=== PATIENT | male | born 1975 | race Caucasian/White ===

== ENCOUNTER → 2020-10-29 | Outpatient (CLI) | payer BC ==
[2020-10-29 16:30] LABS: Basophils # (A) 0.1 k/uL (0-0.2); Basophils % (A) 1 %; Eosinophils # (A) 0.1 k/uL (0-0.7); Eosinophils % (A) 1 %; HCT 44.6 % (39.0-53.0); HGB 15.1 gm/dL (13.0-17.5); Lymphocytes # (A) 2.9 k/uL (1.0-4.8); Lymphocytes % (A) 36 %; MCH 30.1 pg (25.0-35.0); MCV 88.5 fL (80.0-100.0); Mean Platelet Volume 7.7; Monocytes # (A) 0.4 k/uL (0-1.0); Monocytes % (A) 5 %; Neutrophils # (A) 4.5 k/uL (1.3-7.7); Neutrophils % (A) 56 %; Platelet Count 228 k/uL (150-450); RBC 5.04 m/uL (4.30-5.90); RDW 12.4 % (11.5-15.5); WBC 8.1 k/uL (3.8-10.6)
[2020-10-29 16:36] LABS: Potassium 4.1 mmol/L (3.5-5.1)
== END | disposition home or self-care (01) ==
LOC: LABPAT 15:10
PROVIDERS: ATTEND Orthopaedic Surgery
DX: Z01.818 Encounter for other preprocedural examination (principal); M75.42 Impingement syndrome of left shoulder
CPT/HCPCS: 80051; 85025

== ENCOUNTER 2020-11-14 06:10 | Day surgery (SDC) | payer BC ==
[2020-11-07 11:23] VITALS: BMI 23.0
--- NOTE | 2020-11-13 13:33 | HP ---
HISTORY AND PHYSICAL Surgery is 11/14/2020. Aroldo Strauss is a 45-year-old gentleman seen with progressive left shoulder pain. We discussed options for treatment. He elected to proceed with arthroscopy. Consent regarding the procedure was obtained. PAST MEDICAL HISTORY: Hypertension. PAST SURGICAL HISTORY: Right hand surgery. DAILY MEDICATIONS: Losartan. ALLERGIES: None. SOCIAL HISTORY: Denies current tobacco use. PHYSICAL EXAMINATION: Physical evaluation of the left shoulder: Flexion 150 degrees, abduction is 90 degrees. External rotation is 40 degrees with pain and weakness. Tenderness along the anterolateral acromion and rotator cuff insertion site. Impingement sign is positive at 90 degrees. His distal neurovascular exam is intact. Radiographs of the left shoulder revealed a type 2 acromion, acromioclavicular joint osteoarthritis and cystic changes of the tuberosity. The left shoulder MRI revealed a partial rotator cuff tear as well as osteoarthritic changes. IMPRESSION: 1. Left shoulder impingement with rotator cuff tear. 2. Left shoulder acromioclavicular joint osteoarthritis. 3. Hypertension. PLAN: Left shoulder arthroscopy with subacromial decompression, arthroscopic rotator cuff repair, Ofelia procedure and debridement. MMODL / IJN: [id number] /
--- NOTE | 2020-11-13 13:33 | HP ---
HISTORY AND PHYSICAL Surgery is 11/14/2020. Aroldo Strauss is a 45-year-old gentleman seen with progressive left shoulder pain. We discussed options for treatment. He elects to proceed with arthroscopy. Consent was obtained. PAST MEDICAL HISTORY: Hypertension. PAST SURGICAL HISTORY: Right hand surgery. DAILY MEDICATIONS: Losartan. ALLERGIES: None. SOCIAL HISTORY: He denies current tobacco use. PHYSICAL EXAMINATION: Physical evaluation of the left shoulder: Flexion 150 degrees, abduction is 90 degrees. External rotation is 40 degrees with pain, weakness, tenderness along the anterior lateral acromion and rotator cuff insertion site. Impingement is positive at 90. Distal neurovascular exam intact. Radiographs left shoulder: Type 2 acromion, acromioclavicular joint osteoarthritis, cystic change of the tuberosity. MRI left shoulder partial rotator cuff tendon tear, osteoarthritic changes. IMPRESSION: 1. Left shoulder impingement with rotator cuff tear. 2. Left shoulder acromioclavicular joint osteoarthritis. 3. Hypertension. MMODL / IJN: [id number] /
[~2020-11-14 06:10] MED LIST: DEXAMETHASONE SOD PHOSPHATE 4 MG/ML 1 ML VIAL IV ONE; LACTATED RINGERS 1,000 ML IV SCH; LIDOCAINE 1% (10MG/ML) FOR IV START INTRADERMA PRN; MIDAZOLAM 2 MG/2 ML VIAL IV PRN; ONDANSETRON 4 MG/2 ML VIAL IVP ONE
[2020-11-14] MEDS ORDERED: HYDROmorphone 0.5 MG/0.5 ML SYRINGE IVP PRN (07:00)
[2020-11-14] MEDS ORDERED: fentaNYL (PF) 50 MCG/ML 2 ML AMP IVP PRN (07:00)
[2020-11-14] MEDS ORDERED: MIDAZOLAM 2 MG/2 ML VIAL IVP ONE (07:17)
[2020-11-14] MEDS ORDERED: SUCCINYLCHOLINE CHLORIDE 100 MG/5 ML SYR IV ONE (07:51)
[2020-11-14] MEDS ORDERED: MIDAZOLAM 2 MG/2 ML VIAL ONE (07:51)
[2020-11-14] MEDS ORDERED: PHENYLEPHRINE 10 MG/ML VIAL ONE (07:51)
[2020-11-14] MEDS ORDERED: PROPOFOL 10 MG/ML 20 ML VIAL IV ONE (07:51)
[2020-11-14] MEDS ORDERED: fentaNYL (PF) 50 MCG/ML 2 ML AMP ONE (07:51)
[2020-11-14] MEDS ORDERED: DEXAMETHASONE SOD PHOSPHATE 10 MG/ML 1 ML VIAL ONE (07:51)
[2020-11-14] MEDS ORDERED: ROPIVACAINE 5 MG/ML 30 ML VIAL ONE (07:51)
[2020-11-14 09:28] VITALS: RESP 16; TEMP 97.5
--- NOTE | 2020-11-14 09:31 | P.OP ---
Date of Procedure: 11/14/20 Preoperative Diagnosis: Left shoulder impingement Postoperative Diagnosis: 1. Left shoulder rotator cuff tear 2. Left shoulder impingement 3. Left shoulder partial long head biceps tendon tear 4. Left shoulder superficial labral tear Procedure(s) Performed: 1. Left shoulder arthroscopic rotator cuff repair 2. Left shoulder arthroscopic subacromial decompression 3. Left shoulder arthroscopic biceps tenotomy 4. Left shoulder arthroscopic debridement superficial labral tear Implants: 14.75 Arthrex swivel lock anchor Anesthesia: GETA, regional (Interscalene block) Surgeon: Pierre Murphy [facility] Program Manager #1: Osmel Balderas Estimated Blood Loss (ml): 10 Pathology: none sent Condition: stable Disposition: PACU Indications for Procedure: 45-year-old gentleman seen with progressive left shoulder pain. After treatment options were discussed with him, he elected to proceed with arthroscopy. Operative Findings: See description of procedure Description of Procedure: Patient underwent an interscalene block by department of anesthesia. The patient was then taken to the operative suite. The patient underwent a general anesthetic by the department of anesthesia. The patient was placed into a lateral position and secured. There was appropriate padding of the bony prominence. Left shoulder was then prepped and draped in normal sterile orthopedic fashion. We placed the extremity in 10 pounds of longitudinal traction. A posterior incision was now made for a posterior working portal site. The trocar and cannula were inserted into the glenohumeral joint. Arthroscopy was initiated. Spinal needle was now inserted anteriorly, to ascertain the anterior working portal site. An incision was now made in that area, a trocar was inserted followed by a probe. There was superficial tearing of the superior labrum. There were grade 1 chondromalacia changes of the humeral head. There was partial tearing and hyperemia long head biceps tendon. I performed an arthroscopic biceps tenotomy. I debrided that superficial labral tear. The remaining labrum was probed and found to be stable. Instruments removed from glenohumeral joint. Utilizing the posterior working portal site, the trocar and cannula were inserted into the subacromial space. Arthroscopy initiated. I made an incision 2 fingerbreadths lateral to the acromion. I introduced my trocar followed by my ArthroCare ablator. I now began ablating thick subacromial bursal tissue, which exposed the undersurface of the anterior acromion. There was diminished subacromial space. There was a very prominent anterior acromion. A motorized bur was introduced and a subacromial decompression was performed. I also excised some osteophytes off the inferior aspect of the distal clavicle. The AC joint wa s visualized and noted to mildly arthritic. I turned my attention to the rotator cuff. Was some superficial tearing of the anterior aspect of the distal supraspinatus. Upon probing the area I noted a full-thickness perforation/tear. I debrided the margins getting down to stable tendon tissue. The defect measured 11.5 cm and was freely mobile over the footprint. I introduced my motorized bur and abraded the footprint area, getting some petechial bleeding. I passed 2 everted mattress sutures through good bites of rotator cuff tendon with the assistance of Sarmad ROSARIO. I now punched a hole in the footprint area for insertion of an anchor. The suture limbs were passed through the eyelet of a 4.75 Arthrex swivel lock anchor. I placed the eyelet of the pre- punch hole. Sarmad ROSARIO tensioned all 4 suture limbs and deployed anchor with good fixation noted. We had good compression of the tendon along the entire footprint. I injected 1 mL Renyte intra-articular. Instruments now removed from the portal sites. All portal sites were approximated with nylon suture. Sterile dressings were applied followed by a shoulder immobilizer. Osmel ROSARIO assisted in this case. The patient was awakened, transferred to a bed, and taken to recovery in stable condition.
[2020-11-14] MEDS ORDERED: LACTATED RINGERS 1,000 ML IV ONE (09:48)
[2020-11-14 10:13] VITALS: BP 132/87; PULSE 92
--- NOTE | 2020-11-14 10:45 | P.ANPRN ---
Procedure Note - Anesthesia - Nerve Block Performed Left Interscalene Single Time Out Performed: Yes Date of Procedure: 11/14/20 Procedure Start Time: :16 Procedure Stop Time: : Location of Patient: PreOp Indication: Acute Post-Operative Pain, Requested by Surgeon Sedation Type: Sedate with meaningful contact maintained Preparation: Sterile Prep Position: Supine Needle Types: Pajunk Needle Gauge: 21 Ultrasound used to visualize needle placement: Yes Ultrasound used to observe medication spread: Yes Blood Aspirated: No Pain Paresthesia on Injection Noted: No Resistance on Injection: Normal Image Stored and Saved: Yes Events: Uneventful and Well Tolerated (ropi .5% 20cc plus dexamethasone 4mg)
== END 2020-11-14 10:44 | disposition home or self-care (01) ==
LOC: OR 06:10
PROVIDERS: ATTEND Orthopaedic Surgery
DX: M75.122 Complete rotator cuff tear or rupture of left shoulder, not specified as traumatic (principal); M19.012 Primary osteoarthritis, left shoulder; M25.712 Osteophyte, left shoulder; S43.432A Superior glenoid labrum lesion of left shoulder, initial encounter; S46.112A Strain of muscle, fascia and tendon of long head of biceps, left arm, initial encounter; M94.212 Chondromalacia, left shoulder; M75.42 Impingement syndrome of left shoulder; I10 Essential (primary) hypertension; F17.210 Nicotine dependence, cigarettes, uncomplicated; Z79.82 Long term (current) use of aspirin; Z79.899 Other long term (current) drug therapy
CPT/HCPCS: 64415; 76942; 29827; 29826; C1713; Q4212; J2250; J1100 ×2; J2370; J2405; J0690; J3010; J2795; J0330; J2704

== ENCOUNTER 2021-12-18 11:26 | Emergency (ER) | payer BC ==
[2021-12-18 11:43] VITALS: RESP 18; TEMP 98
--- NOTE | 2021-12-18 12:46 | XR ---
EXAMINATION TYPE: XR lumbosacral spine min 4V DATE OF EXAM: 12/18/2021 CLINICAL HISTORY: pain COMPARISON: NONE TECHNIQUE: Frontal, lateral, and oblique images of the lumbar spine are obtained. FINDINGS: There is a 5.5 mm retrolisthesis of L4 on L5 as well as grade 2 anterolisthesis of L5 on S1 measuring 1.2 cm. There appears to be bilateral spondylolysis. Vertebral bodies appear to be intact. Advanced degenerative changes L5-S1. IMPRESSION: Spondylolisthesis at L4-5 and L5-S1.
[2021-12-18] MEDS ORDERED: ACET/COD 300 MG/30 MG STARTER PACK 6 TAB BTL PO STA (13:34)
--- NOTE | 2021-12-18 13:35 | ED ---
Back Pain HPI - General Chief Complaint: Back Pain/Injury Stated Complaint: Rt hip pain Time Seen by Provider: 12/18/21 11:49 Source: patient, RN notes reviewed Limitations: no limitations - History of Present Illness Initial Comments: 46-year-old male presents emergency Department chief complaint low back pain. Patient states he was bowling states his first throat he felt discomfort in his low back and right side. He's had on-and-off issues. He denies any bowel, bladder incontinence or retention or saddle anesthesias. Patient denies any lower extremity weakness. Patient states that is better rest worse with movement. Patient's ever been evaluated for this. - Related Data Home Medications Medication Instructions Recorded Confirmed Losartan Potassium 100 mg PO QAM 10/06/16 11/07/20 Aspirin [Adult Low Dose Aspirin EC] 81 mg PO DAILY 11/07/20 11/07/20 Previous Rx's Medication Instructions Recorded HYDROcodone/APAP 7.5-325MG [[place] 1 each PO Q6HR PRN #28 tab 11/14/20 7.5] Cyclobenzaprine [Flexeril] 10 mg PO TID PRN #15 tab 12/18/21 Ibuprofen [Motrin] 600 mg PO Q8HR PRN #20 tab 12/18/21 predniSONE 50 mg PO DAILY #5 tab 12/18/21 Allergies Allergy/AdvReac Type Severity Reaction Status Date / Time No Known Allergies Allergy Verified 12/18/21 11:42 Review of Systems ROS Statement: Those systems with pertinent positive or pertinent negative responses have been documented in the HPI. ROS Other: All systems not noted in ROS Statement are negative. Past Medical History Past Medical History: Hypertension History of Any Multi-Drug Resistant Organisms: None Reported Past Surgical History: Orthopedic Surgery Past Psychological History: No Psychological Hx Reported Smoking Status: Current every day smoker Past Alcohol Use History: Occasional Past Drug Use History: None Reported General Exam Limitations: no limitations General appearance: alert, in no apparent distress Head exam: Present: atraumatic, normocephalic, normal inspection Respiratory exam: Present: normal lung sounds bilaterally. Absent: respiratory distress, wheezes, rales, rhonchi, stridor Cardiovascular Exam: Present: regular rate, normal rhythm, normal heart sounds. Absent: systolic murmur, diastolic murmur, rubs, gallop, clicks GI/Abdominal exam: Present: soft, normal bowel sounds. Absent: distended, tenderness, guarding, rebound, rigid Extremities exam: Present: other (Lower extremity strength equal bilaterally, equal color equal warmth) Back exam: Present: full ROM, tenderness, paraspinal tenderness. Absent: muscle spasm, vertebral tenderness Course Vital Signs 12/18/21 11:39 Temperature 98.0 F Pulse Rate 96 Respiratory 18 Rate Blood Pressure 149/88 O2 Sat by Pulse 100 Oximetry Medical Decision Making - Medical Decision Making X-ray of lumbar spine shows degenerative changes, spondylosis patient will follow-up with Dr. Howell on-call patient we discharged with pain control, muscle relaxers, anti-inflammatories. Disposition Clinical Impression: Strain of lumbar region, Spondylisthesis Disposition: HOME SELF-CARE Condition: Stable Instructions (If sedation given, give patient instructions): Acute Low Back Pain (ED) Additional Instructions: Please return to the Emergency Department if symptoms worsen or any other concerns. Prescriptions: Cyclobenzaprine [Flexeril] 10 mg PO TID PRN #15 tab PRN Reason: Muscle Spasm Ibuprofen [Motrin] 600 mg PO Q8HR PRN #20 tab PRN Reason: Pain predniSONE 50 mg PO DAILY #5 tab Is patient prescribed a controlled substance at d/c from ED?: No Referrals: Alfredo Arechiga DO [Primary Care Provider] - 1-2 days Jayme Blum DO [Doctor of Osteopathic Medicine] - 1-2 days Time of Disposition: 13:34
[2021-12-18 13:36] VITALS: BP 140/88; PULSE 92
== END 2021-12-18 13:39 | disposition home or self-care (01) ==
LOC: EC 11:26
DX: S39.012A Strain of muscle, fascia and tendon of lower back, initial encounter (principal); M43.16 Spondylolisthesis, lumbar region; I10 Essential (primary) hypertension; F17.200 Nicotine dependence, unspecified, uncomplicated; Z79.82 Long term (current) use of aspirin; X58.XXXA Exposure to other specified factors, initial encounter
CPT/HCPCS: 72110; 99283

== ENCOUNTER → 2022-08-19 | Outpatient (CLI) | payer BC ==
--- NOTE | 2022-08-19 11:44 | XR ---
Lumbar spine HISTORY: Spinal compression, pain, history of trauma 3 views of the lumbar spine correlated prior lumbosacral spine 12/18/2021 Bilateral spondylolysis at L5 is again noted, there is an anterolisthesis grade 1 to grade 2 L5-S1. T here is associated loss of disc height and vacuum phenomenon, spondylosis. Minimal retrolisthesis gra de 1 L4-5. Lumbar vertebral bodies are remarkable for an interval anterior wedge compression deformit y at L2, loss of height of only approximately 25%. No evident retropulsion. There is multilevel spond ylosis consistent with underlying degenerative disc disease. IMPRESSION: Anterior wedge compression deformity of L2 is an interval finding. A [place] critical message alert has been initiated for Alfredo Arechiga DO via the [employer] on 08/19/2022 11:42 AM. This message alert has been sent to Alfredo Arechiga DO via the preferences provided by the clinician for the receipt of Radiology Critical Findings. Message ID [id number].
== END | disposition home or self-care (01) ==
LOC: RADXRMAIN 10:18
PROVIDERS: ATTEND Family Medicine
DX: M48.56XA Collapsed vertebra, not elsewhere classified, lumbar region, initial encounter for fracture (principal)
CPT/HCPCS: 72100